=== PATIENT | female | born 1995 | race Caucasian/White ===

== ENCOUNTER 2018-09-04 17:15 | Emergency (ER) | payer OTHER ==
--- NOTE | 2018-09-04 17:56 | UC ---
Headache HPI - HPI Summary HPI Summary: Was bouncing on trampoline and had sudden pounding headache with blurred vision. Worst headache of her life associated with blurred vision, stiff neck and photophobia. - History Of Current Complaint Chief Complaint: UCHeadache Stated Complaint: SANZ,BLURRED VISION Hx Obtained From: Patient Hx Last Menstrual Period: 08/29/18 ?: No Onset/Duration: Sudden Onset Onset Of Symptoms: Sudden Initially Headache Was: "Worst Headache Ever" Currently Pain Is: Severe Pain Intensity: 8 Timing: Constant Character: Throbbing Location of Headache: Diffuse Aggravating Factor(s): Exertion, Position Change, Bright Lights Allevating Factor(s): Rest, Position Change Associated Signs And Symptoms: Positive: Neck Pain, Neck Stiffness, Visual Changes. Negative: Decreased LOC - Risk Factors SAH Risk Factors: Negative - Allergies/Home Medications Allergies/Adverse Reactions: Allergies Allergy/AdvReac Type Severity Reaction Status Date / Time No Known Allergies Allergy Verified 09/04/18 17:25 Home Medications: Home Medications Levothyroxine TAB* [Synthroid TAB*] 25 mcg PO DAILY 09/04/18 [History Confirmed 09/04/18] PMH/Surg Hx/FS Hx/Imm Hx Previously Healthy: Yes - Surgical History Surgical History: None - Family History Known Family History: Negative: Diabetes - Social History Occupation: Unemployed Lives: Alone - with a friend Alcohol Use: Occasionally Substance Use Type: None Smoking Status (MU): Never Smoked Tobacco Review of Systems All Other Systems Reviewed And Are Negative: Yes Eyes: Positive: Blurred Vision, Photophobia Neurological: Positive: Headache Physical Exam Triage Information Reviewed: Yes Appearance: Well-Appearing, Well-Nourished, Pain Distress Vital Signs: Initial Vital Signs Temp 98.2 F 09/04/18 17:27 Pulse 81 09/04/18 17:27 Resp 18 09/04/18 17:27 BP 117/69 09/04/18 17:27 Pulse Ox 99 09/04/18 17:27 Vital Signs Reviewed: Yes Eyes: Positive: Conjunctiva Clear, Other: - optic discs are sharp ENT: Positive: Pharynx normal, TMs normal Neck: Positive: Nuchal Rigidity - pain with flexion and extension. Respiratory Exam: Normal Cardiovascular Exam: Normal Musculoskeletal Exam: Normal Neurological: Positive: Alert Psychological Exam: Normal Skin Exam: Normal - Additional Comments GCS= 15 Headache Course/Dx - Course Course Of Treatment: C/O sentinal subarachnoid hemorrhage. - Differential Dx/Diagnosis Differential Diagnosis/HQI/PQRI: Migraine, Subarachnoid Hemorrhage, Tension Headache Provider Diagnosis: Acute headache - Physician Notifications Discussed Patient Care With: [facility] - Told to send straight to the ER Time Discussed With Above Provider: 17:59 Instructed by Provider To: Transfer - To [facility] ER via ambulance. Discharge - Sign-Out/Discharge Documenting (check all that apply): Patient Departure All imaging exams completed and their final reports reviewed: No Studies - Discharge Plan Condition: Guarded Disposition: TRANS HIGHER LVL OF CARE FAC Referrals: No Primary Care Phys,NOPCP [Primary Care Provider] - - Billing Disposition and Condition Condition: GUARDED Disposition: Trans Higher Lvl of Care Fac
[2018-09-04] MEDS ORDERED: Ondansetron ODT TAB* 4 MG PO ONE (17:58)
[2018-09-04 18:37] VITALS: BP 138/79
== END 2018-09-04 18:10 | disposition short-term general hospital (02) ==
LOC: UCCORT 17:15
DX: R51 Headache (principal); M54.2 Cervicalgia; H53.8 Other visual disturbances; H53.149 Visual discomfort, unspecified
CPT/HCPCS: 99203; A9270-GY; G0463